=== PATIENT | female | born 1955 | race Caucasian/White ===

== ENCOUNTER 2018-09-06 11:01 | Emergency (ER) | payer MEDICAID, OTHER ==
[~2018-09-06] VITALS: Ht 162.6 cm; Wt 52.2 kg
[2018-09-06 11:01] VITALS: BP 135/80
[~2018-09-06 11:01] MED LIST: ZOLP5TAB2 PO
== END 2018-09-06 12:54 | disposition home or self-care (01) ==
LOC: ER 11:09
DX: S80.02XA Contusion of left knee, initial encounter (principal); M81.0 Age-related osteoporosis without current pathological fracture; Z79.899 Other long term (current) drug therapy; W19.XXXA Unspecified fall, initial encounter; Y93.89 Activity, other specified; Y92.89 Other specified places as the place of occurrence of the external cause; Y99.8 Other external cause status
CPT/HCPCS: 73564-TC

== ENCOUNTER 2020-03-29 18:40 | Emergency (ER) | payer OTHER ==
[~2020-03-29] VITALS: Ht 162.6 cm; Wt 52.2 kg
[2020-03-29 18:44] VITALS: BP 135/81
--- NOTE | 2020-03-29 19:05 | NUR ---
Patient discharged to home in stable condition. Written and verbal after care instructions given. Patient verbalizes understanding of instruction.
== END 2020-03-29 19:06 | disposition home or self-care (01) ==
LOC: ER 18:46
DX: B02.9 Zoster without complications (principal); M81.0 Age-related osteoporosis without current pathological fracture; Z79.899 Other long term (current) drug therapy

== ENCOUNTER 2020-12-11 09:13 | Emergency (ER) | payer OTHER ==
[~2020-12-11] VITALS: Ht 162.6 cm; Wt 51.7 kg
[2020-12-11 09:19] VITALS: BP 147/89
[2020-12-11] MEDS ORDERED: LIDOCAINE 1%-EPI 1:100,000 20 ML VIAL ONE (09:26)
--- NOTE | 2020-12-11 09:35 | NUR ---
dr. [email or web address] at bedside
[2020-12-11] MEDS ORDERED: CEPHALEXIN MONOHYDRATE 500 MG CAPSULE PO ONE (09:50)
[2020-12-11] MEDS ORDERED: TDAP [DIPH/PERTUSSIS/TET] 0.5 ML VIAL IM ONE (09:50)
[2020-12-11] MEDS: CEPHALEXIN MONOHYDRATE 500 MG CAPSULE PO ONE (09:54)
[2020-12-11] MEDS ORDERED: CEPH500C2 PO (09:54)
[2020-12-11] MEDS: TDAP [DIPH/PERTUSSIS/TET] 0.5 ML VIAL IM ONE (09:55)
== END 2020-12-11 10:07 | disposition home or self-care (01) ==
LOC: ER 09:15
DX: S81.811A Laceration without foreign body, right lower leg, initial encounter (principal); M81.0 Age-related osteoporosis without current pathological fracture; Z79.899 Other long term (current) drug therapy; Z98.890 Other specified postprocedural states; W22.8XXA Striking against or struck by other objects, initial encounter; Y93.89 Activity, other specified; Y92.89 Other specified places as the place of occurrence of the external cause; Y99.8 Other external cause status
CPT/HCPCS: 12002; 90471; 90715; 99283; J3490

== ENCOUNTER 2020-12-18 09:04 | Emergency (ER) | payer OTHER ==
[~2020-12-18] VITALS: Ht 162.6 cm; Wt 51.7 kg
[~2020-12-18 09:04] MED LIST changes: +CEPH500C2 PO
[2020-12-18 09:10] VITALS: BP 136/77
== END 2020-12-18 09:46 | disposition home or self-care (01) ==
LOC: ER 09:06
DX: S81.811D Laceration without foreign body, right lower leg, subsequent encounter (principal); M81.0 Age-related osteoporosis without current pathological fracture; Z98.890 Other specified postprocedural states; Z79.899 Other long term (current) drug therapy; X58.XXXD Exposure to other specified factors, subsequent encounter

== ENCOUNTER 2021-01-18 19:19 | Emergency (ER) | payer OTHER, MEDICAID ==
[~2021-01-18] VITALS: Ht 162.6 cm; Wt 51.7 kg
[2021-01-18] MEDS ORDERED: CALC3.7S NS (21:22)
[2021-01-18] MEDS ORDERED: HYDR-3976 GT (21:22)
[2021-01-18] MEDS ORDERED: CARI350T PO (21:22)
--- NOTE | 2021-01-18 21:31 | NUR ---
Patient discharged to home in stable condition. Written and verbal after care instructions given. Patient verbalizes understanding of instruction.
[2021-01-18 21:32] VITALS: BP 132/77
== END 2021-01-18 21:32 | disposition home or self-care (01) ==
LOC: ER 19:20
DX: M48.56XA Collapsed vertebra, not elsewhere classified, lumbar region, initial encounter for fracture (principal); M81.0 Age-related osteoporosis without current pathological fracture; Z98.890 Other specified postprocedural states; Z79.899 Other long term (current) drug therapy
CPT/HCPCS: 72131-TC

== ENCOUNTER 2024-12-12 19:09 | Emergency (ER) | payer BC, OTHER ==
[~2024-12-12] VITALS: Ht 160 cm; Wt 63.5 kg
[~2024-12-12 19:09] MED LIST changes: +CALC3.7S NS; +CARI350T PO; +HYDR-3976 GT
[2024-12-12 20:24] VITALS: BP 129/75; TEMP 98.5; O2SAT 98
== END 2024-12-12 20:25 | disposition home or self-care (01) ==
LOC: ER 19:15
DX: S81.811A Laceration without foreign body, right lower leg, initial encounter (principal); W22.03XA Walked into furniture, initial encounter; Y93.89 Activity, other specified; Y92.89 Other specified places as the place of occurrence of the external cause; Y99.8 Other external cause status

== ENCOUNTER 2024-12-15 00:34 | Emergency (ER) | payer BC ==
[~2024-12-15] VITALS: Ht 165.1 cm; Wt 56.7 kg
[2024-12-15] MEDS ORDERED: CEFTRIAXONE 1GM BAG (ER ONLY) 50 ML IV ONE (01:07)
[2024-12-15 01:12] LABS: BASOPHILS # (AUTO) 0.1 K/uL (0.0-0.2); BASOPHILS % (AUTO) 0.9 % (0.0-2.0); EOSINOPHILS # (AUTO) 0.2 K/uL (0.0-0.7); EOSINOPHILS % (AUTO) 2.4 % (0.0-6.0); HEMATOCRIT 40 % (33-45); HEMOGLOBIN 13.6 g/dL (11.5-14.8); LYMPHOCYTES # (AUTO) 3.3 K/uL (0.8-4.8); LYMPHOCYTES % (AUTO) 40.1 % (20.0-44.0); MEAN CORPUSCULAR HEMOGLOBIN 30 PG (26.0-33.0); MEAN CORPUSCULAR HGB CONC 34 g/dl (31.0-36.0); MEAN CORPUSCULAR VOLUME 90 fL (82-100); MONOCYTES # (AUTO) 0.8 K/uL (0.1-1.30); MONOCYTES % (AUTO) 10.1 % (2.0-12.0); NEUTROPHILS # (AUTO) 3.8 K/uL (1.8-8.9); NEUTROPHILS % (AUTO) 46.5 % (43.0-81.0); PLATELET COUNT (AUTO) 278 K/uL (150-450); RED BLOOD CELL COUNT(AUTO) 4.47 MIL/uL (4.0-5.2); RED CELL DISTRIBUTION WIDTH 13.5 % (11.5-15.0); WHITE BLOOD COUNT (AUTO) 8.3 K/uL (4.3-11.0)
[2024-12-15] MEDS: CEFTRIAXONE 1GM BAG (ER ONLY) 1 GM/50 ML PIGGYBACK IV ONE (01:16)
[2024-12-15 01:19] LABS: CALCIUM, SERUM 9.4 mg/dL (8.5-10.1); CREATININE 0.8 mg/dL (0.6-1.3); POTASSIUM 3.4 mmol/L (3.5-5.1)
[2024-12-15 01:25] LABS: ALBUMIN 3.8 g/dL (3.4-5.0); BILIRUBIN,TOTAL 0.2 mg/dL (0.2-1.0); TOTAL PROTEIN, SERUM 7.5 g/dL (6.4-8.2)
[2024-12-15] MEDS ORDERED: IV NS 0.9% 1,000 ML BAG IV ONE (01:30)
[2024-12-15] MEDS ORDERED: SULF1TAB47 PO (01:42)
[2024-12-15] MEDS ORDERED: CEPH500C2 PO (01:42)
[2024-12-15 02:01] VITALS: BP 120/60; TEMP 98.2; O2SAT 97
== END 2024-12-15 02:02 | disposition home or self-care (01) ==
LOC: ER 00:38
DX: L03.116 Cellulitis of left lower limb (principal); Z48.00 Encounter for change or removal of nonsurgical wound dressing; Z88.0 Allergy status to penicillin; Z79.899 Other long term (current) drug therapy
CPT/HCPCS: 99284; 96365; 85025; 36415; 80053; J7030; J0696

== ENCOUNTER 2024-12-18 14:00 | Emergency (ER) | payer BC ==
[~2024-12-18] VITALS: Ht 162.6 cm; Wt 56.7 kg
[~2024-12-18 14:00] MED LIST changes: +SULF1TAB47 PO
[2024-12-18] MEDS ORDERED: CLINDAMYCIN HCL 150 MG CAPSULE ONE (14:54)
[2024-12-18] MEDS ORDERED: CLIN300C12 PO (14:56)
[2024-12-18] MEDS: CLINDAMYCIN HCL 150 MG CAPSULE PO ONE (14:57)
[2024-12-18 15:15] VITALS: BP 128/70; TEMP 98.8; O2SAT 98
== END 2024-12-18 15:15 | disposition home or self-care (01) ==
LOC: ER 14:05
DX: L03.115 Cellulitis of right lower limb (principal); I10 Essential (primary) hypertension; Z88.0 Allergy status to penicillin

== ENCOUNTER 2024-12-23 20:08 | Inpatient (IN) | payer BC ==
[~2024-12-23] VITALS: Ht 162.6 cm; Wt 60.8 kg
[~2024-12-23 20:08] MED LIST changes: +CLIN300C12 PO
[2024-12-23] MEDS: VANCOMYCIN HCL 1.25 GM in IV D5W 260 ML IV STA (23:38)
[2024-12-23] MEDS ORDERED: VANCOMYCIN 1 GM /D5W 250 ML PB IV ONE (23:38)
[2024-12-23 23:46] LABS: BASOPHILS # (AUTO) 0.1 K/uL (0.0-0.2); BASOPHILS % (AUTO) 0.9 % (0.0-2.0); EOSINOPHILS # (AUTO) 0.2 K/uL (0.0-0.7); EOSINOPHILS % (AUTO) 2.6 % (0.0-6.0); HEMATOCRIT 40 % (33-45); HEMOGLOBIN 13.4 g/dL (11.5-14.8); LYMPHOCYTES # (AUTO) 2.7 K/uL (0.8-4.8); LYMPHOCYTES % (AUTO) 29.3 % (20.0-44.0); MEAN CORPUSCULAR HEMOGLOBIN 30 PG (26.0-33.0); MEAN CORPUSCULAR HGB CONC 34 g/dl (31.0-36.0); MEAN CORPUSCULAR VOLUME 89 fL (82-100); MONOCYTES # (AUTO) 0.8 K/uL (0.1-1.30); MONOCYTES % (AUTO) 9.2 % (2.0-12.0); NEUTROPHILS # (AUTO) 5.3 K/uL (1.8-8.9); PLATELET COUNT (AUTO) 287 K/uL (150-450); RED BLOOD CELL COUNT(AUTO) 4.44 MIL/uL (4.0-5.2); RED CELL DISTRIBUTION WIDTH 13.6 % (11.5-15.0); WHITE BLOOD COUNT (AUTO) 9.2 K/uL (4.3-11.0)
[2024-12-23 23:54] LABS: CREATININE 0.7 mg/dL (0.6-1.3); POTASSIUM 4.4 mmol/L (3.5-5.1)
[2024-12-23 23:56] LABS: APPEARANCE,URINE CLEAR (CLEAR); BILIRUBIN,URINE NEGATIVE (NEGATIVE); BLOOD, URINE TRACE-INTA Ery/uL (NEGATIVE); COLOR,URINE YELLOW (YELLOW); KETONES,URINE NEGATIVE (NEGATIVE); LEUKOCYTE ESTERASE ,URINE NEGATIVE (NEGATIVE); NITRITE, URINE NEGATIVE (NEGATIVE); PH,URINE 6.5 (5.0-8.0); PROTEIN,URINE NEGATIVE (NEGATIVE); UGLUCOSE NEGATIVE (NEGATIVE); UROBILINOGEN,URINE 0.2 EU/dL (0.2)
[2024-12-23 23:57] LABS: ADD URINE CULTURE NO; BACTERIA,URINE Rare /HPF (None Seen); SQUAMOUS EPITHELIAL CELL,UR Few /HPF (None Seen); WBC,URINE 0-2 /HPF (0-3)
[2024-12-23 23:59] LABS: ALBUMIN 3.7 g/dL (3.4-5.0); BILIRUBIN,TOTAL 0.3 mg/dL (0.2-1.0); TOTAL PROTEIN, SERUM 7.3 g/dL (6.4-8.2)
[2024-12-24] MEDS ORDERED: MAG HYDROX/AL HYDROX/SIMETH 30 ML UDC PO PRN (02:00)
[2024-12-24] MEDS ORDERED: ONDANSETRON HCL/PF 4 MG/2 ML VIAL IVP PRN (02:00)
[2024-12-24] MEDS ORDERED: Z GUARD REMEDY 4 OZ OINT TP PRN (02:00)
[2024-12-24] MEDS ORDERED: MAGNESIUM HYDROXIDE 30 ML UDC PO PRN (02:00)
[2024-12-24 03:05] VITALS: BP 135/55; TEMP 97.9; O2SAT 99
[2024-12-24 03:35] VITALS: BP 135/55; TEMP 97.9; O2SAT 99
[2024-12-24] MEDS ORDERED: VANCOMYCIN HCL 1.25 GM in IV D5W 250 ML IV SCH (05:00)
[2024-12-24 06:35] LABS: BASOPHILS # (AUTO) 0.1 K/uL (0.0-0.2); BASOPHILS % (AUTO) 0.9 % (0.0-2.0); EOSINOPHILS # (AUTO) 0.2 K/uL (0.0-0.7); HEMATOCRIT 36 % (33-45); HEMOGLOBIN 12.4 g/dL (11.5-14.8); LYMPHOCYTES # (AUTO) 2.4 K/uL (0.8-4.8); LYMPHOCYTES % (AUTO) 29.6 % (20.0-44.0); MEAN CORPUSCULAR HEMOGLOBIN 31 PG (26.0-33.0); MEAN CORPUSCULAR HGB CONC 34 g/dl (31.0-36.0); MEAN CORPUSCULAR VOLUME 90 fL (82-100); MONOCYTES # (AUTO) 0.9 K/uL (0.1-1.30); MONOCYTES % (AUTO) 10.4 % (2.0-12.0); NEUTROPHILS # (AUTO) 4.6 K/uL (1.8-8.9); NEUTROPHILS % (AUTO) 56.1 % (43.0-81.0); PLATELET COUNT (AUTO) 252 K/uL (150-450); RED BLOOD CELL COUNT(AUTO) 4.05 MIL/uL (4.0-5.2); RED CELL DISTRIBUTION WIDTH 13.6 % (11.5-15.0); WHITE BLOOD COUNT (AUTO) 8.2 K/uL (4.3-11.0)
[2024-12-24 06:56] LABS: CALCIUM, SERUM 9.1 mg/dL (8.5-10.1); CREATININE 0.6 mg/dL (0.6-1.3); MAGNESIUM 2.5 mg/dL (1.8-2.4); PHOSPHORUS 4.4 mg/dL (2.5-4.9); POTASSIUM 4.6 mmol/L (3.5-5.1)
[2024-12-24 07:00] VITALS: BP 121/68; TEMP 97.7; O2SAT 100
[2024-12-24] MEDS: PANTOPRAZOLE 40 MG TABLET.DR PO SCH (07:30)
[2024-12-24] MEDS ORDERED: OMEP40CA21 PO (08:03)
[2024-12-24] MEDS ORDERED: GABA300C PO (08:03)
[2024-12-24] MEDS ORDERED: BACL10TA PO (08:03)
[2024-12-24] MEDS ORDERED: ZOLP10TA2 PO (08:03)
[2024-12-24] MEDS: VANCOMYCIN 750 MG in IV D5W 250 ML IV SCH (10:50)
[2024-12-24] MEDS: THERAHONEY GEL 1.5 OZ TUBE TP SCH (15:00)
[2024-12-24] MEDS: LIDOCAINE 1%-EPI 1:100,000 20 ML VIAL TP ONE (15:00)
[2024-12-24 16:00] VITALS: BP 131/60; TEMP 97.9; O2SAT 99
[2024-12-24 20:00] VITALS: BP 130/63; TEMP 97.9; O2SAT 98
[2024-12-24] MEDS: LEVOFLOXACIN 500 MG /D5W 100ML 500 MG in PREMIX 1 EA IV SCH (21:26)
[2024-12-25] MEDS: TRAZODONE 50 MG TABLET PO PRN (00:24)
[2024-12-25 06:46] LABS: BASOPHILS % (AUTO) 0.6 % (0.0-2.0); EOSINOPHILS # (AUTO) 0.1 K/uL (0.0-0.7); EOSINOPHILS % (AUTO) 1.9 % (0.0-6.0); HEMATOCRIT 40 % (33-45); HEMOGLOBIN 13.4 g/dL (11.5-14.8); LYMPHOCYTES # (AUTO) 1.7 K/uL (0.8-4.8); LYMPHOCYTES % (AUTO) 23.5 % (20.0-44.0); MEAN CORPUSCULAR HEMOGLOBIN 30 PG (26.0-33.0); MEAN CORPUSCULAR HGB CONC 34 g/dl (31.0-36.0); MEAN CORPUSCULAR VOLUME 89 fL (82-100); MONOCYTES # (AUTO) 0.7 K/uL (0.1-1.30); MONOCYTES % (AUTO) 10.3 % (2.0-12.0); NEUTROPHILS # (AUTO) 4.6 K/uL (1.8-8.9); NEUTROPHILS % (AUTO) 63.7 % (43.0-81.0); PLATELET COUNT (AUTO) 276 K/uL (150-450); RED BLOOD CELL COUNT(AUTO) 4.48 MIL/uL (4.0-5.2); RED CELL DISTRIBUTION WIDTH 13.7 % (11.5-15.0); WHITE BLOOD COUNT (AUTO) 7.2 K/uL (4.3-11.0)
[2024-12-25 06:53] LABS: CALCIUM, SERUM 8.7 mg/dL (8.5-10.1); CREATININE 0.7 mg/dL (0.6-1.3); MAGNESIUM 2.3 mg/dL (1.8-2.4); PHOSPHORUS 4.1 mg/dL (2.5-4.9); POTASSIUM 3.9 mmol/L (3.5-5.1)
[2024-12-25 07:00] VITALS: BP 124/60; TEMP 98.1; O2SAT 94
[2024-12-25] MEDS: ACETAMINOPHEN 325 MG TABLET PO PRN (13:43)
[2024-12-25 16:00] VITALS: BP 122/67; TEMP 98.2; O2SAT 95
[2024-12-25 20:00] VITALS: BP 130/59; TEMP 97.9; O2SAT 100
[2024-12-25] MEDS: HYDROCODONE/APAP 5/325MG TABLET PO PRN (23:34)
[2024-12-26 06:38] LABS: BASOPHILS # (AUTO) 0.1 K/uL (0.0-0.2); BASOPHILS % (AUTO) 0.8 % (0.0-2.0); EOSINOPHILS # (AUTO) 0.2 K/uL (0.0-0.7); EOSINOPHILS % (AUTO) 2.1 % (0.0-6.0); HEMATOCRIT 41 % (33-45); HEMOGLOBIN 13.4 g/dL (11.5-14.8); LYMPHOCYTES # (AUTO) 2.4 K/uL (0.8-4.8); LYMPHOCYTES % (AUTO) 30.9 % (20.0-44.0); MEAN CORPUSCULAR HEMOGLOBIN 30 PG (26.0-33.0); MEAN CORPUSCULAR HGB CONC 33 g/dl (31.0-36.0); MEAN CORPUSCULAR VOLUME 90 fL (82-100); MONOCYTES # (AUTO) 0.8 K/uL (0.1-1.30); NEUTROPHILS # (AUTO) 4.3 K/uL (1.8-8.9); NEUTROPHILS % (AUTO) 56.2 % (43.0-81.0); PLATELET COUNT (AUTO) 267 K/uL (150-450); RED CELL DISTRIBUTION WIDTH 13.2 % (11.5-15.0); WHITE BLOOD COUNT (AUTO) 7.6 K/uL (4.3-11.0)
[2024-12-26 06:55] LABS: CALCIUM, SERUM 9.3 mg/dL (8.5-10.1); CREATININE 0.7 mg/dL (0.6-1.3); POTASSIUM 3.8 mmol/L (3.5-5.1)
[2024-12-26 07:30] VITALS: BP 117/67; TEMP 97.7; O2SAT 96
[2024-12-26] MEDS: VANCOMYCIN HCL 1.25 GM in IV D5W 250 ML IV SCH (07:55)
[2024-12-26 16:00] VITALS: BP 124/72; TEMP 98.1; O2SAT 99
[2024-12-26] MEDS: diphenhydrAMINE HCL/ZINC ACET CREAM 28.3 GM TUBE TP PRN (17:12)
[2024-12-26 20:00] VITALS: BP 119/64; TEMP 98.2; O2SAT 93
[2024-12-26] MEDS: LEVOFLOXACIN (250MG) 250 MG TABLET PO SCH (20:21)
[2024-12-26] MEDS: TEMAZEPAM 7.5 MG CAPSULE PO PRN (23:16)
[2024-12-27 07:05] LABS: CALCIUM, SERUM 9.2 mg/dL (8.5-10.1); CREATININE 0.8 mg/dL (0.6-1.3); POTASSIUM 3.4 mmol/L (3.5-5.1)
[2024-12-27 07:27] LABS: BASOPHILS % (AUTO) 0.6 % (0.0-2.0); EOSINOPHILS # (AUTO) 0.2 K/uL (0.0-0.7); EOSINOPHILS % (AUTO) 2.5 % (0.0-6.0); HEMATOCRIT 39 % (33-45); HEMOGLOBIN 13.3 g/dL (11.5-14.8); LYMPHOCYTES # (AUTO) 2.4 K/uL (0.8-4.8); LYMPHOCYTES % (AUTO) 31.7 % (20.0-44.0); MEAN CORPUSCULAR HEMOGLOBIN 30 PG (26.0-33.0); MEAN CORPUSCULAR HGB CONC 34 g/dl (31.0-36.0); MEAN CORPUSCULAR VOLUME 89 fL (82-100); MONOCYTES # (AUTO) 0.8 K/uL (0.1-1.30); MONOCYTES % (AUTO) 10.7 % (2.0-12.0); NEUTROPHILS % (AUTO) 54.5 % (43.0-81.0); PLATELET COUNT (AUTO) 267 K/uL (150-450); RED BLOOD CELL COUNT(AUTO) 4.45 MIL/uL (4.0-5.2); RED CELL DISTRIBUTION WIDTH 13.4 % (11.5-15.0); WHITE BLOOD COUNT (AUTO) 7.4 K/uL (4.3-11.0)
[2024-12-27 07:30] VITALS: BP 138/70; TEMP 97.7; O2SAT 98
[2024-12-27] MEDS: POTASSIUM CHLORIDE 20 MEQ TAB.PRT.SR PO ONE (09:29)
[2024-12-27] MEDS: DOXYCYCLINE HYCLATE (100 MG) 100 MG TABLET PO SCH (09:58)
[2024-12-27] MEDS ORDERED: CIPR-262 PO (12:11)
[2024-12-27] MEDS ORDERED: DOXY100C2 PO (12:11)
== END 2024-12-27 15:00 | disposition home health service (06) | DRG 571 ==
LOC: ER 20:09 → MED 12-24 02:09
PROVIDERS: ADMIT Nurse Practitioner Family; ATTEND Nurse Practitioner Acute Care
PROC: 0JBN0ZZ Excision of Right Lower Leg Subcutaneous Tissue and Fascia, Open Approach (ICD-10-PCS; principal; 2024-12-25)
DX: S81.811A Laceration without foreign body, right lower leg, initial encounter (principal); L03.115 Cellulitis of right lower limb; W22.03XA Walked into furniture, initial encounter; Y92.89 Other specified places as the place of occurrence of the external cause; E78.5 Hyperlipidemia, unspecified; G62.9 Polyneuropathy, unspecified; Z79.899 Other long term (current) drug therapy
CPT/HCPCS: 36415; 73590-TC; 80048-TC; 80053-TC; 80061-TC; 80202-TC; 81001; 83735-TC; 84100-TC; 85025-TC; 87040-TC; A4216; A4223; A6253; A6403; G0378; J1956; J3370; J3371; J3490; J7050; J7060